=== PATIENT | female | born 1980 | race Caucasian/White ===

== ENCOUNTER → 2016-05-19 | Outpatient (CLI) | payer BC, OTHER, MEDICAID ==
[~2016-05-19] MED LIST: /ADVA50050 INH; ACET50TA PO; IBUP600T26 PO; PRENTAB66 PO; VENTOLIN INHALER INH
== END ==
LOC: M SLEEP HO 07:23
PROVIDERS: ATTEND Physician Assistant
DX: R06.83 Snoring (principal)

== ENCOUNTER → 2016-07-19 | Outpatient (CLI) | payer BC, OTHER ==
--- NOTE | 2016-07-24 08:35 | SLEEPCENT ---
DATE OF PROCEDURE: 07/19/2016 REQUESTING PROVIDER: Inez Bae NP INTERPRETATION: Nocturnal polysomnography was performed for the titration of pressure therapy in this patient with a clinical diagnosis of obstructive sleep apnea syndrome and home testing revealing a respiratory event index of 9.5. For testing, the patient was fit with a [employer] Quattro full face mask of small size, 5 cm of water pressure were applied to the circuit and the lights were extinguished. 8 hours of data were reviewed. There were 446 minutes of sleep identified. Sleep latency was mildly prolonged at 14 minutes. Rapid eye movement (REM) latency was normal at 87 minutes. Sleep architecture improved with optimal pressure therapy. Overall sleep efficiency was 94.6%. Electrocardiogram (EKG) showed a sinus rhythm with an average heart rate of 72 beats per minute. Electroencephalogram (EEG) showed reasonably normal waveforms for awake and sleep. Respiratory events were reasonably palliated with a CPAP to a pressure of +5. Remaining measures of sleep physiology were normal. IMPRESSION: 1. Obstructive sleep apnea syndrome (G47.33). RECOMMENDATIONS: Nightly use of pressure therapy at 5 cm of water.
== END ==
LOC: M SLEEP 19:43
PROVIDERS: ATTEND Nurse Practitioner Adult Health
DX: G47.33 Obstructive sleep apnea (adult) (pediatric) (principal)

== ENCOUNTER → 2016-08-23 | Outpatient (CLI) | payer BC, OTHER ==
[~2016-08-23] MED LIST changes: +AZEL1SPR3; +BREO1INH INH; +CARN250C3 PO; +FLON27.5
--- NOTE | 2016-08-23 10:14 | REP ---
Obstetric sonography: History: Supervision of . Findings: Transabdominal and transvaginal scanning are performed. An intrauterine gestational sac is evident. No embryonic pole or yolk sac is visible. By mean sac size diameter of 6.7 mm, this would correspond with a 5 week 3-day gestational age estimate. Uterine dimensions are 10.2 x 5.0 x 7.3 cm. No free fluid is noted. A normal right ovary is seen measuring 3.2 x 2.5 x 1.7 cm. There is a 1.4 cm cyst in the right ovary which may be corpus luteum or follicle cyst. Normal left ovary is seen measuring 2.5 x 1.8 x 2.0 cm. No free fluid is seen. Impression: A gestational sac or sac like structure is seen in the uterine endometrium. No yolk sac or embryonic pole identified. Early IUP versus blighted ovum versus missed AB. Clinical and possibly sonographic followup suggested. Signed by George Garrett MD 08/23/2016 11:03 A
== END ==
LOC: M RAD 08:07
PROVIDERS: ATTEND Registered Nurse
DX: Z32.01 Encounter for pregnancy test, result positive (principal)

== ENCOUNTER → 2016-08-29 | Outpatient (CLI) | payer BC, OTHER ==
--- NOTE | 2016-08-29 13:24 | REP ---
First trimester obstetrical ultrasound for viability and dating: Transabdominal and endovaginal imaging are performed. There is an intrauterine gestational sac with a pole. There is cardiac activity. The heart rate is 104 beats per minute. There is no subchorionic hematoma. The maternal adnexa and cul-de-sac are unremarkable. There is yolk sac measuring up to 2 mm. The crown-rump length of the pole is 0.6 cm correspond to 6 weeks 2 days gestational age. The EDWIN is 04/22/2017. Signed by Otilio Campa MD 08/29/2016 01:16 P
== END ==
LOC: M RAD 11:51
PROVIDERS: ATTEND Registered Nurse
DX: Z34.80 Encounter for supervision of other normal pregnancy, unspecified trimester (principal); Z3A.01 Less than 8 weeks gestation of pregnancy

== ENCOUNTER → 2016-09-08 | Outpatient (CLI) | payer BC, OTHER ==
[2016-09-08 18:27] LABS: ALBUMIN 3.5 GM/DL (3.2-5.2); ALBUMIN/GLOBULIN RATIO 1.17 (1.00-1.93); ALKALINE PHOSPHATASE 45 U/L (45-117); ALT/SGPT 83 U/L (12-78); ANION GAP 3 MEQ/L (8-16); AST/SGOT 38 U/L (15-37); BILIRUBIN,TOTAL 0.3 MG/DL (0.2-1.0); BLOOD UREA NITROGEN 9 MG/DL (7-18); CALCIUM LEVEL 9.1 MG/DL (8.5-10.1); CARBON DIOXIDE LEVEL 32 MEQ/L (21-32); CHLORIDE LEVEL 107 MEQ/L (98-107); CREATININE FOR GFR 0.67 MG/DL (0.55-1.02); FREE T4 0.73 NG/DL (0.76-1.46); GLOMERULAR FILTRATION RATE > 60.0 (>60); GLUCOSE, FASTING 84 MG/DL (70-105); POTASSIUM SERUM 4.1 MEQ/L (3.5-5.1); SODIUM LEVEL 142 MEQ/L (136-145); TOTAL PROTEIN 6.5 GM/DL (6.4-8.2)
[2016-09-08 18:53] LABS: BASO % 0.7 % (0.0-1.0); EOS # 0.4 K/mm3 (0.0-0.50); LARGE UNSTAINED CELL # 0.1 K/mm3 (0.0-0.4); LARGE UNSTAINED CELL % 2.4 % (0.0-4.0); LYMPH # 1.8 K/mm3 (1.5-4.5); LYMPH % 29.9 % (24.0-44.0); MEAN CORPUSCULAR HGB CONC 32.6 g/dl (32.0-36.5); MONO # 0.4 K/mm3 (0.0-0.8); MONO % 7.2 % (0.0-5.0); NEUTROPHILS # 2.9 K/mm3 (1.8-7.7); NEUTROPHILS % 52.7 % (36.0-66.0); PLATELET COUNT, AUTOMATED 285 k/mm3 (150-450); RED CELL DISTRIBUTION WIDTH 13.2 % (11.5-14.5); WHITE BLOOD COUNT 5.5 K/mm3 (4.0-10.0)
== END ==
LOC: M SMT 14:17
PROVIDERS: ATTEND Physician Assistant
DX: R01.1 Cardiac murmur, unspecified (principal)

== ENCOUNTER → 2016-09-26 | Outpatient (CLI) | payer BC, OTHER ==
--- NOTE | 2016-09-26 22:01 | ECHO ---
DATE OF PROCEDURE: 09/26/2016 REFERRING PHYSICIAN: Everton Silverio INDICATION: Heart murmur. Study was performed on an outpatient basis on 09/26/2016. The patient measures 173 cm and weighs 133 kg. DIMENSIONS: IVS: 1.1 LV: 4.6 LVPW: 1.1 LA: 3.7 Aorta: 2.6 FINDINGS: The study is of surprisingly good quality considering patient's body habitus. The patient is in sinus rhythm. Left ventricle is of normal size and systolic function with estimated ejection fraction (EF) 60-65%. Right ventricle is normal size and systolic function. Both atria appear normal. All four cardiac valves were reasonably well seen and appear normal. No pericardial effusion is noted. Inferior vena cava is dilated, but collapses with respiration. Aortic root is normal. Aortic arch also appears normal. Limited views of abdominal aorta do not reveal any obvious abnormalities. Doppler interrogation reveals no aortic stenosis or insufficiency. There is trace mitral insufficiency and trace tricuspid insufficiency. Calculated pulmonary artery pressure is within normal limits, even assuming mildly elevated CVP. Mitral inflow pattern and tissue Doppler imaging of mitral annulus reveal normal diastolic function (E prime velocities of septal and lateral mitral annulus are 9.5 and 14.4 cm/s respectively). CONCLUSIONS: 1. Study is of good technical quality. 2. Normal LV size, systolic and diastolic function. 3. No significant valvular disease. 4. Normal mildly elevated central venous pressure but likely normal pulmonary artery pressure. COMMENT: Subacute bacterial endocarditis (SBE) prophylaxis is not recommended. MTDD
== END ==
LOC: M CARPUL 10:17
PROVIDERS: ATTEND Physician Assistant
DX: R01.1 Cardiac murmur, unspecified (principal)

== ENCOUNTER → 2016-09-26 | Outpatient (CLI) | payer BC, OTHER ==
--- NOTE | 2016-09-27 08:40 | REP ---
Pelvic ultrasound with transabdominal, endovaginal and Doppler ultrasound assessment balloon: The bladder is adequately distended. The uterus is anteverted and normal size measuring 8.2 x 4.3 x 5.2 cm. The endometrium is not thickened measuring 5.4 mm. There are no retained products. The ovaries are normal size. Right ovary measures 2.1: 0.6 x 120 cm. Left ovary measures 2.3-0.2 x 2.0 cm. There are no dominant ovarian masses or cysts on the right on the left. There is vascular flow in both ovaries. The Doppler resistive index of the intraparenchymal arteries on the right is 0.501 on the left 0.59. Impression: Normal pelvic ultrasound. Signed by Otilio Campa MD 09/27/2016 08:32 A
== END ==
LOC: M RAD 17:07
PROVIDERS: ATTEND Physician Assistant
DX: Z09 Encounter for follow-up examination after completed treatment for conditions other than malignant neoplasm (principal)

== ENCOUNTER → 2017-01-30 | Outpatient (REF) | payer BC, OTHER | LOC: M LAB REF 17:25 | PROVIDERS: ATTEND Physician Assistant Medical | DX: J02.9 Acute pharyngitis, unspecified (principal) ==

== ENCOUNTER → 2018-11-20 | Outpatient (CLI) | payer OTHER, BC ==
[~2018-11-20] MED LIST changes: -/ADVA50050 INH; -ACET50TA PO; +ADVA1AER2 INH; +MAPA500T17 PO
[2018-11-20 10:17] LABS: BASO % 0.9 % (0.0-1.0); EOS # 0.2 10^3/uL (0.0-0.5); EOS % 5.6 % (0.0-3.0); HEMATOCRIT 43.2 % (36.0-47.0); HEMOGLOBIN 13.7 g/dl (12.0-15.5); LYMPH # 1.6 10^3/uL (1.5-5.0); LYMPH % 36.7 % (24.0-44.0); MEAN CORPUSCULAR HEMOGLOBIN 29.1 pg (27.0-33.0); MEAN CORPUSCULAR HGB CONC 31.7 g/dl (32.0-36.5); MEAN CORPUSCULAR VOLUME 91.9 fl (80.0-96.0); MONO # 0.5 10^3/uL (0.0-0.8); MONO % 10.6 % (0.0-5.0); PLATELET COUNT, AUTOMATED 258 10^3/uL (150-450); WHITE BLOOD COUNT 4.3 10^3/uL (4.0-10.0)
[2018-11-20 10:51] LABS: ALBUMIN 3.8 GM/DL (3.2-5.2); ALT/SGPT 32 U/L (12-78); BILIRUBIN,TOTAL 0.6 MG/DL (0.2-1.0); BLOOD UREA NITROGEN 9 MG/DL (7-18); CALCIUM LEVEL 9.3 MG/DL (8.5-10.1); CARBON DIOXIDE LEVEL 28 MEQ/L (21-32); CHLORIDE LEVEL 109 MEQ/L (98-107); CHOLESTEROL LEVEL 165 MG/DL (<200); CREATININE FOR GFR 0.79 MG/DL (0.55-1.30); FREE T4 0.87 NG/DL (0.76-1.46); GLOMERULAR FILTRATION RATE > 60.0 (>60); GLUCOSE, FASTING 84 MG/DL (70-100); HDL CHOLESTEROL 47 MG/DL (>40); LDL CHOLESTEROL 105 MG/DL (<100); NON-HDL-C 118 MG/DL; POTASSIUM SERUM 4.2 MEQ/L (3.5-5.1); SODIUM LEVEL 143 MEQ/L (136-145); TOTAL PROTEIN 6.7 GM/DL (6.4-8.2); TRIGLYCERIDES LEVEL 67 MG/DL (<150)
== END ==
LOC: M WUC 08:09
PROVIDERS: ATTEND Physician Assistant
DX: Z13.29 Encounter for screening for other suspected endocrine disorder (principal)

== ENCOUNTER → 2019-02-21 | Outpatient (CLI) | payer OTHER, BC ==
[2019-02-21 19:27] LABS: HEPATITIS B SURFACE ANTIGEN NEGATIVE (NEGATIVE); HEPATITIS C VIRUS ABY INDEX < 0.0 INDEX (<0.8); HIV 1&2 SCREEN CENTAUR NEGATIVE (NEGATIVE)
[2019-02-21 20:19] LABS: CHLAMYDIA DNA AMPLIFICATION NEGATIVE (NEGATIVE); GC DNA AMPLIFICATION NEGATIVE (NEGATIVE)
== END ==
LOC: M PLALAB 14:02
PROVIDERS: ATTEND Advanced Practice Midwife
DX: Z11.3 Encounter for screening for infections with a predominantly sexual mode of transmission (principal)
CPT/HCPCS: 36415; 86780; 86803; 87340; 87389; 87491; 87591; G0123

== ENCOUNTER → 2019-03-24 | Outpatient (CLI) | payer OTHER, BC ==
[2019-03-24 12:32] LABS: BASO # 0.1 10^3/uL (0.0-0.2); BASO % 1.2 % (0.0-1.0); EOS # 0.2 10^3/uL (0.0-0.5); EOS % 3.5 % (0.0-3.0); HEMOGLOBIN 13.5 g/dl (12.0-15.5); LYMPH % 38.6 % (24.0-44.0); MEAN CORPUSCULAR HEMOGLOBIN 29.3 pg (27.0-33.0); MEAN CORPUSCULAR HGB CONC 31.4 g/dl (32.0-36.5); MEAN CORPUSCULAR VOLUME 93.3 fl (80.0-96.0); MONO # 0.5 10^3/uL (0.0-0.8); MONO % 9.1 % (0.0-5.0); NEUTROPHILS # 2.5 10^3/uL (1.5-8.5); NEUTROPHILS % 47.4 % (36.0-66.0); PLATELET COUNT, AUTOMATED 251 10^3/uL (150-450); RED BLOOD COUNT 4.61 10^6/uL (4.00-5.40); WHITE BLOOD COUNT 5.2 10^3/uL (4.0-10.0)
[2019-03-24 12:46] LABS: ALBUMIN 3.7 GM/DL (3.2-5.2); ALT/SGPT 25 U/L (12-78); BILIRUBIN,TOTAL 0.5 MG/DL (0.2-1.0); BLOOD UREA NITROGEN 10 MG/DL (7-18); CALCIUM LEVEL 9.2 MG/DL (8.5-10.1); CARBON DIOXIDE LEVEL 32 MEQ/L (21-32); CHLORIDE LEVEL 108 MEQ/L (98-107); CREATININE FOR GFR 0.68 MG/DL (0.55-1.30); GLOMERULAR FILTRATION RATE > 60.0 (>60); GLUCOSE, FASTING 86 MG/DL (70-100); POTASSIUM SERUM 4.6 MEQ/L (3.5-5.1); RHEUMATOID FACTOR QUANT < 10.0 IU/ML (<15.0); SODIUM LEVEL 141 MEQ/L (136-145); TOTAL PROTEIN 6.4 GM/DL (6.4-8.2)
[2019-03-24 12:54] LABS: ERYTHROCYTE SEDIMENTATION RATE 4 mm/hr (0-20)
[2019-03-24 12:55] LABS: TOTAL 25(OH) VITAMIN D 15.8 NG/ML (30.0-100.0)
[2019-03-25 14:10] LABS: ANTINUCLEAR ANTIBODIES DIRECT Negative (Negative)
== END ==
LOC: M PLALAB 08:58
PROVIDERS: ATTEND Psychiatry & Neurology Neurology
DX: R51 Headache (principal)

== ENCOUNTER → 2020-02-20 | Outpatient (CLI) | payer OTHER, BC ==
[2020-02-20 10:12] LABS: BASO # 0.1 10^3/uL (0.0-0.2); BASO % 1.4 % (0.0-1.0); EOS # 0.3 10^3/uL (0.0-0.5); EOS % 5.4 % (0.0-3.0); HEMATOCRIT 44.5 % (36.0-47.0); HEMOGLOBIN 14.1 g/dl (12.0-15.5); LYMPH # 1.7 10^3/uL (1.5-5.0); LYMPH % 28.2 % (24.0-44.0); MEAN CORPUSCULAR HEMOGLOBIN 28.5 pg (27.0-33.0); MEAN CORPUSCULAR HGB CONC 31.7 g/dl (32.0-36.5); MEAN CORPUSCULAR VOLUME 90.1 fl (80.0-96.0); MONO # 0.5 10^3/uL (0.0-0.8); MONO % 8.1 % (0.0-5.0); NEUTROPHILS # 3.3 10^3/uL (1.5-8.5); NEUTROPHILS % 56.7 % (36.0-66.0); PLATELET COUNT, AUTOMATED 277 10^3/uL (150-450); RED BLOOD COUNT 4.94 10^6/uL (4.00-5.40); WHITE BLOOD COUNT 5.9 10^3/uL (4.0-10.0)
[2020-02-20 10:49] LABS: ALBUMIN 3.8 GM/DL (3.2-5.2); ALT/SGPT 44 U/L (12-78); BILIRUBIN,TOTAL 0.5 MG/DL (0.2-1.0); BLOOD UREA NITROGEN 12 MG/DL (7-18); CARBON DIOXIDE LEVEL 28 MEQ/L (21-32); CHLORIDE LEVEL 110 MEQ/L (98-107); CREATININE FOR GFR 0.79 MG/DL (0.55-1.30); GLOMERULAR FILTRATION RATE > 60.0 (>60); GLUCOSE, FASTING 99 MG/DL (70-100); POTASSIUM SERUM 4.4 MEQ/L (3.5-5.1); SODIUM LEVEL 142 MEQ/L (136-145); TOTAL PROTEIN 6.5 GM/DL (6.4-8.2)
[2020-02-20 11:29] LABS: TOTAL 25(OH) VITAMIN D 18.1 NG/ML (30.0-100.0)
[2020-02-20 13:16] LABS: HEMOGLOBIN A1c 4.9 %
== END ==
LOC: M PLALAB 08:04
PROVIDERS: ATTEND Family Medicine
DX: G47.33 Obstructive sleep apnea (adult) (pediatric) (principal); E66.8 Other obesity; R53.83 Other fatigue

== ENCOUNTER → 2022-06-23 | Outpatient (CLI) | payer BC, OTHER | LOC: M WUC 13:34 | PROVIDERS: ATTEND Physician Assistant | DX: M43.02 Spondylolysis, cervical region (principal); S16.1XXA Strain of muscle, fascia and tendon at neck level, initial encounter ==